=== PATIENT | male | born 1980 ===

== ENCOUNTER 2017-10-04 22:12 | Emergency (ER) | payer SELFPAY ==
[2017-10-04] MEDS ORDERED: Sodium Chloride 0.9% 1,000 ML IV STA (22:31)
[2017-10-04] MEDS ORDERED: Multivitamin (MVI) 10 ML, Folic Acid 1 MG, Thiamine 100 MG in Dextrose 5%/0.45% NS 1,00... IV ONE (22:45)
[2017-10-04 23:09] LABS: BASO # 0.1 K/uL (0.0-0.2); BASO % 0.6 % (0.0-2.0); EOS % 0.2 % (0.0-4.0); HEMOGLOBIN 14.2 g/dL (12.0-18.0); LYMPH % 9.2 % (20.0-40.0); MEAN CELL VOLUME 90.1 fl (80.0-94.0); MEAN CORPUSCULAR HEMOGLOBIN 30.6 pg (27.0-31.0); MEAN PLATELET VOLUME 8.6 fl (7.2-11.7); MONO # 0.8 K/uL (0.0-0.8); MONO % 7.5 % (0.0-10.0); NEUT # 8.6 K/uL (1.8-7.0); NEUT % 82.5 % (50.0-75.0); PLATELET COUNT 205 K/uL (130-400); RBC 4.65 Mil/uL (4.40-5.90); RED CELL DISTRIBUTION WIDTH 13.1 % (11.5-14.5); WHITE BLOOD COUNT 10.4 K/uL (4.8-10.8)
--- NOTE | 2017-10-04 23:20 | ED PDOC ---
HPI: Hypertension/Hypotension Time Seen by Provider: 10/04/17 22:29 Chief Complaint (Nursing): High Blood Pressure Chief Complaint (Provider): High Blood Pressure History Per: Patient History/Exam Limitations: no limitations Onset/Duration Of Symptoms: Sudden Onset Current Symptoms Are (Timing): Still Present Exacerbating Factor(s): Pos: Injestion Of Caffeinated Beverages Additional Complaint(s): 37 year old male with history of alcohol dependence, presents to the emergency department with a complaint of palpitations associated with nausea and headache, onset of 1 day, status post ingesting 4 beers today. Patient further reports drinking espresso shortly afterwards in attempt to improve symptoms. He denies any fever, chills, vomiting, cough or shortness of breath. Patient states that he normally drinks approximately 12 beers daily. PMD: none provided Past Medical History Reviewed: Historical Data, Nursing Documentation, Vital Signs Vital Signs: Last Vital Signs Temp 97.1 F L 10/04/17 22:14 Pulse 150 H 10/04/17 22:14 Resp 16 10/04/17 22:14 BP 164/119 H 10/04/17 22:14 Pulse Ox 100 10/04/17 22:14 - Medical History PMH: No Chronic Diseases - Surgical History Surgical History: No Surg Hx - Family History Family History: States: Unknown Family Hx - Social History Current smoker - smoking cessation education provided: No Alcohol: > 2 Drinks/Day (12) Drugs: Denies - Allergies Allergies/Adverse Reactions: Allergies Allergy/AdvReac Type Severity Reaction Status Date / Time No Known Allergies Allergy Verified 10/04/17 22:18 Review of Systems ROS Statement: Except As Marked, All Systems Reviewed And Found Negative Constitutional: Negative for: Fever, Chills Cardiovascular: Positive for: Palpitations Respiratory: Negative for: Cough, Shortness of Breath Gastrointestinal: Positive for: Nausea. Negative for: Vomiting, Diarrhea Neurological: Positive for: Headache Physical Exam - Reviewed Nursing Documentation Reviewed: Yes Vital Signs Reviewed: Yes - Physical Exam Appears: Positive for: Non-toxic, No Acute Distress, Uncomfortable Head Exam: Positive for: ATRAUMATIC, NORMAL INSPECTION, NORMOCEPHALIC Skin: Positive for: Normal Color Eye Exam: Positive for: Normal appearance, EOMI, PERRL ENT: Positive for: Normal ENT Inspection Neck: Positive for: Normal, Painless ROM, Supple Cardiovascular/Chest: Positive for: Chest Non Tender, Tachycardia. Negative for : Regular Rate, Rhythm Respiratory: Positive for: Normal Breath Sounds. Negative for: Wheezing, Respiratory Distress Gastrointestinal/Abdominal: Positive for: Normal Exam, Soft. Negative for: Tenderness Back: Positive for: Normal Inspection. Negative for: L CVA Tenderness, R CVA Tenderness Extremity: Positive for: Normal ROM (upper/lower) Neurologic/Psych: Positive for: Alert, Oriented. Negative for: Motor/Sensory Deficits - Laboratory Results Result Diagrams: 10/04/17 23:05 10/04/17 23:05 - ECG O2 Sat by Pulse Oximetry: 100 (RA) Pulse Ox Interpretation: Normal Medical Decision Making Medical Decision Making: Initial Impression: 37 year old male with acute mild alcohol withdrawal Initial Plan: * Alcohol serum * CMP * Drug screen, urine * Troponin I * CBC * PTT * PT * Ativan 2mg IVP * Dextrose 100mg IV 125mls/hr * NS 1,000ml IV per 1,000mls/hr * Accucheck Time: 0231 --Labs: no significant abnormality. --Upon provider reevaluation, patient shows markable improvement with normalized BP and HR. Patient is medically stable and requires no further treatment in the ED at this time. Provider offered a referral for detox facility , however, patient declines treatment. Patient will be discharged home. Counseling was provided and all questions were answered regarding diagnosis. There is agreement to discharge plan. Return if symptoms persist or worsen. Clinical Impression: Alcohol Withdrawal Scribe Attestation: Documented by Shameka Cedillo, acting as a scribe for Juan Gallagher MD. Provider Scribe Attestation: All medical record entries made by the Scribe were at my direction and personally dictated by me. I have reviewed the chart and agree that the record accurately reflects my personal performance of the history, physical exam, medical decision making, and the department course for this patient. I have also personally directed, reviewed, and agree with the discharge instructions and disposition. Disposition - Clinical Impression Clinical Impression: Alcohol withdrawal - Patient ED Disposition Is Patient to be Admitted: No Counseled Patient/Family Regarding: Studies Performed, Diagnosis - Disposition Disposition: Routine/Home Disposition Time: 02:31 Condition: STABLE Instructions: Alcohol Withdrawal Forms: [facility] (Lithuanian) Print Language: ALBANIAN Critical Care Time - Critical Care Note Total Time (in mins): 30 Documented critical care: time excludes all time spent performing seperately billable procedures.
[2017-10-04 23:26] LABS: PARTIAL THROMBOPLASTIN TIME 27.1 Seconds (25.6-37.1); PROTHROMBIN TIME 11.5 Seconds (9.8-13.1)
[2017-10-04 23:28] LABS: ALB/GLOB RATIO 1.3 (1.0-2.1); ALBUMIN 4.8 g/dL (3.5-5.0); ALT/SGPT 111 U/L (21-72); AST/SGOT 93 U/L (17-59); BLOOD UREA NITROGEN 14 mg/dl (9-20); CALCIUM 9.6 mg/dL (8.4-10.2); GFR AFRICAN-AMERICAN > 60; GFR NON-AFRICAN AMERICAN > 60
[2017-10-05] LABS: BARBITURATES, UR NEGATIVE (NEGATIVE); BENZODIAZEPINES, UR NEGATIVE (NEGATIVE); OPIATES, UR NEGATIVE (NEGATIVE); PHENCYCLIDINE, UR NEGATIVE (NEGATIVE)
[2017-10-05 00:44] VITALS: RESP 18
[2017-10-05] MEDS ORDERED: Multivitamin (MVI) 10 ML, Folic Acid 1 MG, Thiamine 100 MG in Dextrose 5%/0.45% NS 1,00... IV ONE (00:55)
[2017-10-05 01:39] LABS: LYMPHOCYTE 8 % (20-50); MONOCYTE 6 % (0-10); NEUTROPHIL 86 % (42-75); PLATELET ESTIMATE NORMAL (NORMAL); TOTAL CELLS COUNTED 100
[2017-10-05 02:30] VITALS: BP 116/88; PULSE 96
[2017-10-05 02:47] VITALS: O2SAT 100
[2017-10-05 02:59] VITALS: TEMP 97.5
== END 2017-10-05 03:05 | disposition home or self-care (01) ==
LOC: H.ER 22:12
DX: F10.239 Alcohol dependence with withdrawal, unspecified (principal); I10 Essential (primary) hypertension
CPT/HCPCS: 80053; 84484; 85025; 85610; 85730; 96374; 99285; G0480; J2060; J3411; J7040; J7042